=== PATIENT | female | born 1985 | race Asian ===

== ENCOUNTER 2016-10-22 04:58 | Inpatient (IN) | payer OTHER ==
[~2016-10-22] VITALS: Ht 154.9 cm; Wt 60.9 kg
[~2016-10-22 04:58] MED LIST: ACET650T34 PO; DOCU-30 PO; IBUP-1222 PO
[2016-10-22] MEDS ORDERED: OXYTOCIN 30U/ 0.9% NaCL 500ML 500 ML IV PRN (05:07)
[2016-10-22] MEDS ORDERED: AMPICILLIN 2 GM in SODIUM CHLORIDE 0.9% 100 ML IVPB STA (05:07)
[2016-10-22] MEDS ORDERED: OXYTOCIN 30U/ 0.9% NaCL 500ML 500 ML IV ONE (05:07)
[2016-10-22 05:16] VITALS: BP 101/69
[2016-10-22] MEDS ORDERED: PNV11TAB PO (05:24)
[2016-10-22] MEDS ORDERED: MISOPROSTOL 25 MCG TABLET VG PRN (05:30)
[2016-10-22] MEDS ORDERED: FENTANYL PF 100 MCG/2ML IVPush PRN (05:30)
[2016-10-22] MEDS ORDERED: ONDANSETRON 2MG/ML, 2ML IVPush PRN (05:30)
[2016-10-22] MEDS ORDERED: FENTANYL PF 100 MCG/2ML IV PRN (05:30)
[2016-10-22] MEDS ORDERED: MISOPROSTOL 25 MCG TABLET ONE (05:35)
[2016-10-22] MEDS: LACTATED RINGERS 1,000 ML IV SCH ×2 (05:45→14:46)
[2016-10-22] MEDS ORDERED: OXYTOCIN 30U/ 0.9% NaCL 500ML 500 ML ONE (06:56)
[2016-10-22] MEDS ORDERED: NEWBORN KIT ONE (06:56)
[2016-10-22] MEDS: AMPICILLIN 1 GM in SODIUM CHLORIDE 0.9% 50 ML IVPB SCH ×4 (09:30→17:30)
[2016-10-22] MEDS ORDERED: FENTANYL PF 100 MCG/2ML ONE (12:31)
[2016-10-22 12:39] VITALS: BP 106/61
[2016-10-22] MEDS ORDERED: FENTANYL/BUPIV./NS/PF 250 ML EPIDCONT ONE (13:33)
[2016-10-22] MEDS ORDERED: LIDOCAINE/PF 1.5%-EPI 1:200K, 30ML ONE (13:33)
[2016-10-22] MEDS ORDERED: BUPIVACAINE/PF 0.25% ONE (13:33)
[2016-10-22] MEDS: OXYTOCIN 30U/ 0.9% NaCL 500ML 500 ML IV SCH (15:10)
[2016-10-22] MEDS ORDERED: ACETAMINOPHEN 325 MG TABLET PO PRN ×2 (15:30)
[2016-10-22] MEDS ORDERED: ONDANSETRON 2MG/ML, 2ML IV PRN (15:30)
[2016-10-22] MEDS ORDERED: OXYcodone/APAP 5/325MG TABLET PO PRN ×2 (15:30)
[2016-10-22] MEDS ORDERED: MISOPROSTOL 200 MCG TABLET PR PRN (15:30)
[2016-10-22] MEDS ORDERED: METOCLOPRAMIDE 5 MG/ML, 2ML IV PRN (15:30)
[2016-10-22 16:00] VITALS: BP 115/67
[2016-10-22 17:15] VITALS: BP 108/68
[2016-10-22] MEDS ORDERED: FENTANYL/BUPIV./NS/PF 250 ML EPIDCONT SCH (17:21)
[2016-10-22] MEDS ORDERED: LACTATED RINGERS 1,000 ML IV SCH (17:21)
[2016-10-22] MEDS ORDERED: LACTATED RINGERS 1,000 ML IVBOLUS PRN (17:30)
[2016-10-22] MEDS: IBUPROFEN 600 MG TABLET PO PRN (20:38)
[2016-10-22 20:50] VITALS: BP 101/62
[2016-10-23 00:15] VITALS: BP 101/60
[2016-10-23] MEDS: OXYTOCIN 30U/ 0.9% NaCL 500ML 500 ML IV SCH ×3 (01:27→21:27)
[2016-10-23 05:00] VITALS: BP 103/66
[2016-10-23 06:50] VITALS: BP 101/64
[2016-10-23] MEDS: DOCUSATE 100 MG CAPSULE PO PRN ×2 (08:34→21:09)
[2016-10-23] MEDS: PRENATAL VIT/IRON/FA 1 EACH TABLET PO SCH (08:34)
[2016-10-23 11:45] VITALS: BP 109/71
[2016-10-23 19:00] VITALS: BP 125/78
[2016-10-23] MEDS: IBUPROFEN 600 MG TABLET PO PRN (21:09)
[2016-10-24] MEDS: OXYTOCIN 30U/ 0.9% NaCL 500ML 500 ML IV SCH (07:27)
[2016-10-24] MEDS: PRENATAL VIT/IRON/FA 1 EACH TABLET PO SCH ×2 (07:43→10:04)
[2016-10-24] MEDS: DOCUSATE 100 MG CAPSULE PO PRN (07:43)
[2016-10-24 07:55] VITALS: BP 119/71
[2016-10-24] MEDS ORDERED: IBUP-1222 PO (11:31)
== END 2016-10-24 12:09 | disposition home or self-care (01) | DRG 775 ==
LOC: LDIP 04:58 → 2NW 17:06
PROVIDERS: ADMIT Obstetrics & Gynecology; ATTEND Obstetrics & Gynecology
PROC: 10E0XZZ Delivery of Products of Conception, External Approach (ICD-10-PCS; principal; 2016-10-22)
PROC: 3E0P7GC Introduction of Other Therapeutic Substance into Female Reproductive, Via Natural or Artificial Opening (ICD-10-PCS; 2016-10-22)
PROC: 00HU33Z Insertion of Infusion Device into Spinal Canal, Percutaneous Approach (ICD-10-PCS; 2016-10-22)
PROC: 3E0R3CZ (ICD-10-PCS; 2016-10-22)
DX: O36.5930 Maternal care for other known or suspected poor fetal growth, third trimester, not applicable or unspecified (principal); O62.3 Precipitate labor; O99.52 Diseases of the respiratory system complicating childbirth; O99.824 Streptococcus B carrier state complicating childbirth; J45.909 Unspecified asthma, uncomplicated; Z3A.39 39 weeks gestation of pregnancy; Z37.0 Single live birth
CPT/HCPCS: 36415; 85025; 86850; 86900; J0290; J3010; J2590; J7120

== ENCOUNTER 2019-02-06 09:33 | Inpatient (IN) | payer OTHER ==
[~2019-02-06] VITALS: Ht 154.9 cm; Wt 60.9 kg
[~2019-02-06 09:33] MED LIST changes: +ACET-1770 PO; -ACET650T34 PO; +DOCU-131 PO; -DOCU-30 PO; +PNV11TAB PO
[2019-02-06 10:30] VITALS: BP 104/59
[2019-02-06] MEDS ORDERED: OXYTOCIN 30U/ 0.9% NaCL 500ML 500 ML IV ONE (11:13)
[2019-02-06] MEDS ORDERED: CALCIUM CARBONATE 500 MG TAB.CHEW PO PRN (11:30)
[2019-02-06] MEDS ORDERED: FENTANYL PF 100 MCG/2ML IVPush PRN (11:30)
[2019-02-06] MEDS ORDERED: PLEASE ENTER HEIGHT AND WEIGHT MC SCH ×2 (11:30)
[2019-02-06] MEDS ORDERED: ONDANSETRON 2MG/ML, 2ML IVPush PRN (11:30)
[2019-02-06] MEDS ORDERED: FENTANYL PF 100 MCG/2ML IV PRN (11:30)
[2019-02-06] MEDS ORDERED: FENTANYL/BUPIV./NS/PF 250 ML EPIDCONT SCH (11:32)
[2019-02-06 11:43] LABS: BASOPHILS # (AUTO) 0.02 x10^3/uL (0-0.1); BASOPHILS % (AUTO) 0 % (0-1); EOSINOPHILS # (AUTO) 0.01 x10^3/uL (0-0.4); EOSINOPHILS % (AUTO) 0 % (1-7); LYMPHOCYTES % (AUTO) 12 % (22-44); MD NO; MEAN CORPUSCULAR HEMOGLOBIN 32.2 pg (27.0-34.8); MEAN CORPUSCULAR HGB CONC 34.2 g/dL (32.4-35.8); MEAN CORPUSCULAR VOLUME 94.2 fL (80-100); MEAN PLATELET VOLUME 8.5 fL (7.4-10.4); MONOCYTES # (AUTO) 0.43 x10^3/uL (0.2-0.8); MONOCYTES % (AUTO) 4 % (2-9); NEUTROPHILS # (AUTO) 9.26 x10^3/uL (1.8-6.8); NEUTROPHILS % (AUTO) 84 % (42-75); PLATELET COUNT 180 x10^3/uL (130-400); RED BLOOD COUNT 4.24 x10^6/uL (3.82-5.3)
[2019-02-06] MEDS ORDERED: LACTATED RINGERS 1,000 ML IVBOLUS PRN (12:00)
[2019-02-06] MEDS ORDERED: OXYTOCIN 30U/ 0.9% NaCL 500ML 500 ML ONE ×2 (12:11→17:59)
[2019-02-06] MEDS ORDERED: NEWBORN KIT ONE (12:11)
[2019-02-06] MEDS ORDERED: BUPIVACAINE 0.25% ONE (12:24)
[2019-02-06] MEDS: LACTATED RINGERS 1,000 ML IV SCH ×2 (12:58→19:13)
[2019-02-06] MEDS ORDERED: OXYTOCIN 30U/ 0.9% NaCL 500ML 500 ML IV PRN (15:03)
[2019-02-06] MEDS: OXYTOCIN 30U/ 0.9% NaCL 500ML 500 ML IV SCH (16:35)
[2019-02-06] MEDS ORDERED: METHYLERGONOVINE 0.2 MG/ML IM PRN (17:00)
[2019-02-06] MEDS ORDERED: MISOPROSTOL 200 MCG TABLET PR PRN (17:00)
[2019-02-06] MEDS ORDERED: OXYcodone/APAP 5/325MG TABLET PO PRN ×2 (17:00)
[2019-02-06] MEDS ORDERED: ONDANSETRON 2MG/ML, 2ML IV PRN (17:00)
[2019-02-06 19:30] VITALS: BP 110/71
[2019-02-06] MEDS: DOCUSATE 100 MG CAPSULE PO PRN (20:05)
[2019-02-06] MEDS: IBUPROFEN 600 MG TABLET PO PRN (20:05)
[2019-02-06 23:59] VITALS: BP 112/66
[2019-02-07 01:24] LABS: BASOPHILS # (AUTO) 0.03 x10^3/uL (0-0.1); BASOPHILS % (AUTO) 0 % (0-1); EOSINOPHILS # (AUTO) 0.06 x10^3/uL (0-0.4); EOSINOPHILS % (AUTO) 1 % (1-7); LYMPHOCYTES # (AUTO) 1.51 x10^3/uL (1-3.4); LYMPHOCYTES % (AUTO) 13 % (22-44); MD NO; MEAN CORPUSCULAR HGB CONC 34.3 g/dL (32.4-35.8); MEAN CORPUSCULAR VOLUME 96.3 fL (80-100); MEAN PLATELET VOLUME 8.5 fL (7.4-10.4); MONOCYTES # (AUTO) 0.46 x10^3/uL (0.2-0.8); MONOCYTES % (AUTO) 4 % (2-9); NEUTROPHILS # (AUTO) 10.08 x10^3/uL (1.8-6.8); NEUTROPHILS % (AUTO) 83 % (42-75); PLATELET COUNT 162 x10^3/uL (130-400); RED BLOOD COUNT 3.83 x10^6/uL (3.82-5.3); RED CELL DISTRIBUTION WIDTH 12.3 % (9.6-15.2)
[2019-02-07] MEDS: OXYTOCIN 30U/ 0.9% NaCL 500ML 500 ML IV SCH ×2 (02:35→12:35)
[2019-02-07 04:30] VITALS: BP 101/63
[2019-02-07 08:00] VITALS: BP 115/71
[2019-02-07] MEDS ORDERED: PRENATAL VIT/IRON/FA 1 EACH TABLET PO SCH (09:00)
[2019-02-07] MEDS: DOCUSATE 100 MG CAPSULE PO PRN (09:16)
[2019-02-07] MEDS: IBUPROFEN 600 MG TABLET PO PRN (09:16)
[2019-02-07 12:00] VITALS: BP 101/58
[2019-02-07] MEDS ORDERED: DIPH,PERTUSS(ACELL),TET VAC/PF NC IM-VACC ONE ×2 (12:37→13:00)
== END 2019-02-07 14:15 | disposition home or self-care (01) | DRG 807 ==
LOC: LDOP 09:33 → LDIP 11:13 → UNDOADMIN 11:31 → LDIP 11:31 → 2NW 19:22
PROVIDERS: ADMIT Obstetrics & Gynecology; ATTEND Obstetrics & Gynecology
PROC: 10E0XZZ Delivery of Products of Conception, External Approach (ICD-10-PCS; principal; 2019-02-06)
PROC: 3E0R3BZ Introduction of Anesthetic Agent into Spinal Canal, Percutaneous Approach (ICD-10-PCS; 2019-02-06)
PROC: 00HU33Z Insertion of Infusion Device into Spinal Canal, Percutaneous Approach (ICD-10-PCS; 2019-02-06)
PROC: 10907ZC Drainage of Amniotic Fluid, Therapeutic from Products of Conception, Via Natural or Artificial Opening (ICD-10-PCS; 2019-02-06)
DX: O80 Encounter for full-term uncomplicated delivery (principal); Z37.0 Single live birth; Z3A.39 39 weeks gestation of pregnancy; Z83.3 Family history of diabetes mellitus; Z82.3 Family history of stroke; Z91.013 Allergy to seafood
CPT/HCPCS: 36415; 85025; 86850; 86900; 90715; G0378; J3490; J2590; J3010; J7120